=== PATIENT | female | born 1960 | race Caucasian/White ===

== ENCOUNTER 2017-01-19 09:03 | Outpatient (CLI) | payer BC ==
--- NOTE | 2017-01-19 18:05 | RAD ---
LEFT FOOT THREE VIEWS 01/19/17 No fracture or periosteal reaction was seen. The dorsal lateral foot was unremarkable. There is a li ttle cortical thickening in the third metatarsal shaft but it does not look recent. A calcaneal spur was noted. IMPRESSION: No acute bony finding. POS: HOME
--- NOTE | 2017-01-19 18:06 | RAD ---
RIGHT KNEE TWO VIEWS 01/19/17 No fracture, dislocation, or acute bony change was seen. There is no joint effusion. Some small oste ophytes are forming around the joint but the joint space is not narrowed. IMPRESSION: Mild arthritic change. POS: HOME
== END 2017-01-19 09:04 | disposition home or self-care (01) ==
LOC: BURRAD 09:03
PROVIDERS: ATTEND Family Medicine
DX: M79.672 Pain in left foot (principal); M25.561 Pain in right knee

== ENCOUNTER 2020-06-24 11:04 | Outpatient (CLI) | payer BC ==
--- NOTE | 2020-06-24 13:58 | RAD ---
RIGHT ANKLE THREE VIEWS: 06/24/20 Soft tissue swelling is seen laterally, but no definite fracture was identified at this time. The cole nt space appears normal. The articular surfaces are smooth. A large calcaneal spur was noted. IMPRESSION: Lateral swelling. POS: HOME
== END 2020-06-24 11:05 | disposition home or self-care (01) ==
LOC: BURRAD 11:04
PROVIDERS: ATTEND Registered Nurse Community Health
DX: S93.401A Sprain of unspecified ligament of right ankle, initial encounter (principal); M79.89 Other specified soft tissue disorders

== ENCOUNTER 2022-02-25 13:09 | Outpatient (CLI) | payer BC | END 2022-02-25 13:10 | disposition home or self-care (01) | LOC: BURLAB 13:09 | PROVIDERS: ATTEND Radiology Nuclear Radiology | DX: Z01.812 Encounter for preprocedural laboratory examination (principal) | CPT/HCPCS: 36415; 82565 ==

== ENCOUNTER 2022-02-26 08:31 | Outpatient (CLI) | payer BC | END 2022-02-26 08:32 | disposition home or self-care (01) | LOC: BURCT 08:31 | PROVIDERS: ATTEND Family Medicine | DX: R10.2 Pelvic and perineal pain (principal); R31.9 Hematuria, unspecified; K57.32 Diverticulitis of large intestine without perforation or abscess without bleeding | CPT/HCPCS: 74177 ==